=== PATIENT | female | born 1980 ===

== ENCOUNTER 2017-08-26 15:53 | Emergency (ER) | payer BC ==
[2017-08-26 17:34] VITALS: BP 130/94
--- NOTE | 2017-08-26 17:45 | UC ---
UC General HPI - HPI Summary HPI Summary: infection to L ear piercing since friday-worsening. no fever. - History of Current Complaint Chief Complaint: UCSkin Stated Complaint: EAR PIERCING INFECTION Time Seen by Provider: 08/26/17 17:24 Hx Obtained From: Patient Hx Last Menstrual Period: 08/02/17 Onset/Duration: Gradual Onset, Lasting Days - 3-4 Timing: Constant Pain Intensity: 5 Aggravating: nothing Alleviating: nothing Associated Signs & Symptoms: Positive: Other - area red, sore and swollen - Allergy/Home Medications Allergies/Adverse Reactions: Allergies Allergy/AdvReac Type Severity Reaction Status Date / Time amoxicillin Allergy Rash Verified 08/26/17 17:39 cephalexin [From Keflex] Allergy Rash Verified 08/26/17 17:39 fish oil Allergy Nausea And Verified 08/26/17 17:39 Vomiting PMH/Surg Hx/FS Hx/Imm Hx Previously Healthy: Yes - Surgical History Surgical History: Yes Surgery Procedure, Year, and Place: NASAL POLYP SURGERY. Kidney stone lithotripsy left side Dr burgess [facility] 09/2014. right shoulder surgery - Family History Known Family History: Positive: None - Social History Occupation: Employed Full-time Lives: With Family Alcohol Use: Rare Substance Use Type: None Smoking Status (MU): Never Smoked Tobacco - Immunization History Most Recent Influenza Vaccination: Fall 2013 Vaccination Up to Date: Yes Review of Systems Constitutional: Negative Skin: Other - red, swollen l ear Eyes: Negative ENT: Negative Respiratory: Negative Cardiovascular: Negative Gastrointestinal: Negative Genitourinary: Negative Motor: Negative Neurovascular: Negative Musculoskeletal: Negative Neurological: Negative Psychological: Negative Is Patient Immunocompromised?: No All Other Systems Reviewed And Are Negative: Yes Physical Exam Triage Information Reviewed: Yes Appearance: Well-Appearing Vital Signs: Initial Vital Signs Temp 98.7 F 08/26/17 17:28 Pulse 78 08/26/17 17:28 Resp 16 08/26/17 17:28 BP 130/94 08/26/17 17:28 Pulse Ox 100 08/26/17 17:28 Vital Signs Reviewed: Yes Eyes: Positive: Conjunctiva Clear ENT: Positive: Pharynx normal, TMs normal, Other - L auricle with erythema, mild swelling, warm, tender and weeping from auricle piercing. no auricular adenopathy.. Negative: Nasal congestion, Nasal drainage Neck: Positive: Supple, Nontender, No Lymphadenopathy Respiratory: Positive: Lungs clear, Normal breath sounds Cardiovascular: Positive: RRR, No Murmur Abdomen Description: Positive: Nontender, No Organomegaly, Soft Bowel Sounds: Positive: Present Musculoskeletal: Positive: ROM Intact Neurological: Positive: Alert Psychological: Positive: Age Appropriate Behavior Skin Exam: Normal Procedures - Procedure Summary Procedure Summary: permission obtained to remove piercing from cartilage. piercing removed without difficulty, culture obtained. site cleaned soak/water then openings covered with Bacitracin. pt tolerated well. Course/Dx - Course Course Of Treatment: pt established with Dr Rodriguez thus will f/u with him tomorrow for a recheck. piercing returned to the pt. - Differential Dx - Multi-Symptom Provider Diagnoses: Infection L auricle Discharge - Sign-Out/Discharge Documenting (check all that apply): Discharge/Admit/Transfer - Discharge Plan Condition: Stable Disposition: HOME Prescriptions: DOXYcycline CAP(*) [DOXYcycline 100MG CAP(*)] 100 mg PO BID #20 cap Patient Education Materials: Cellulitis (DC) Referrals: Noemi Giraldo MD [Primary Care Provider] - If Needed Jonah Rodriguez MD [Medical Doctor] - 1 Day - Billing Disposition and Condition Condition: STABLE Disposition: HOME
== END 2017-08-26 17:59 | disposition home or self-care (01) ==
LOC: UCCORT 15:53
DX: L08.9 Local infection of the skin and subcutaneous tissue, unspecified (principal); Z88.1 Allergy status to other antibiotic agents; Z88.0 Allergy status to penicillin; Z91.048 Other nonmedicinal substance allergy status
CPT/HCPCS: 87070; 87077; 87186; 87205; 87640; 87641; 99212; G0463

== ENCOUNTER 2018-05-27 11:39 | Emergency (ER) | payer BC ==
[2018-05-27 11:57] VITALS: BP 135/88
[2018-05-27 12:08] LABS: Influenza A Molecular POSITIVE (Negative)
--- NOTE | 2018-05-27 12:27 | UC ---
UC General HPI - HPI Summary HPI Summary: HOLLIS WITH FEVER/CHILLS AND BODY ACHES X 1 DAY. TMAX 101 - History of Current Complaint Chief Complaint: UCGeneralIllness Stated Complaint: FLU SX'S Time Seen by Provider: 05/27/18 12:21 Hx Obtained From: Patient Hx Last Menstrual Period: 05/25/18 Onset/Duration: Gradual Onset Timing: Constant Pain Intensity: 4 Associated Signs & Symptoms: Negative: Cough, Diarrhea, SOB, Vomiting - Allergy/Home Medications Allergies/Adverse Reactions: Allergies Allergy/AdvReac Type Severity Reaction Status Date / Time amoxicillin Allergy Rash Verified 05/27/18 11:49 ceftriaxone [From Rocephin] Allergy Rash Verified 05/27/18 11:49 cephalexin [From Keflex] Allergy Rash Verified 05/27/18 11:49 ciprofloxacin [From Cipro] Allergy Altered Verified 05/27/18 11:49 Mental Status doxycycline Allergy Rash Verified 05/27/18 11:49 fish oil Allergy Nausea And Verified 05/27/18 11:49 Vomiting Home Medications: Home Medications Aspirin/Acetaminophen/Caffeine [Excedrin Migraine Caplet] 1 each PO ONCE [History Confirmed 05/27/18] Fluticasone NASAL SPRAY 50MCG* [Flonase NASAL SPRAY 50MCG*] 2 spray BOTH NARES DAILY 05/27/18 [History Confirmed 05/27/18] Hydrochlorothiazide TAB* [Hydrodiuril TAB*] 25 mg PO BID 05/27/18 [History Confirmed 05/27/18] Potassium Citrate [Potassium Citrate ER] 5 meq PO DAILY 05/27/18 [History Confirmed 05/27/18] Ubidecarenone [Coq-10] 1 dose PO DAILY 05/27/18 [History Confirmed 05/27/18] PMH/Surg Hx/FS Hx/Imm Hx Cardiovascular History: Hypertension - Surgical History Surgical History: Yes Surgery Procedure, Year, and Place: NASAL POLYP SURGERY. Kidney stone lithotripsy left side Dr burgess [facility] 09/2014. right shoulder surgery - Family History Known Family History: Positive: None - Social History Occupation: Employed Full-time Alcohol Use: Occasionally Substance Use Type: None Smoking Status (MU): Never Smoked Tobacco - Immunization History Most Recent Influenza Vaccination: Fall 2013 Vaccination Up to Date: Yes Review of Systems All Other Systems Reviewed And Are Negative: Yes Constitutional: Positive: Fever, Chills, Fatigue Skin: Positive: Negative Eyes: Positive: Negative ENT: Positive: Negative Respiratory: Positive: Negative Cardiovascular: Positive: Negative Gastrointestinal: Positive: Negative Genitourinary: Positive: Negative Motor: Positive: Negative Neurovascular: Positive: Negative Musculoskeletal: Positive: Myalgia Neurological: Positive: Headache Psychological: Positive: Negative Physical Exam Triage Information Reviewed: Yes Appearance: Ill-Appearing - BUT NON TOXIC Vital Signs: Initial Vital Signs Temp 99.4 F 05/27/18 11:51 Pulse 91 05/27/18 11:51 Resp 16 05/27/18 11:51 BP 135/88 05/27/18 11:51 Pulse Ox 100 05/27/18 11:51 Vital Signs Reviewed: Yes Eyes: Positive: Conjunctiva Clear ENT: Positive: Pharynx normal, TMs normal. Negative: Nasal congestion, Nasal drainage Neck: Positive: Supple, Nontender, No Lymphadenopathy Respiratory: Positive: Lungs clear, Normal breath sounds Cardiovascular: Positive: RRR, No Murmur Abdomen Description: Positive: Nontender, No Organomegaly, Soft Bowel Sounds: Positive: Present Musculoskeletal: Positive: ROM Intact Neurological: Positive: Alert Psychological: Positive: Age Appropriate Behavior Skin Exam: Normal Diagnostics - Laboratory Diagnostic Studies Completed/Ordered: + INFLUENZA A Course/Dx - Diagnoses Provider Diagnosis: Influenza A Discharge - Sign-Out/Discharge Documenting (check all that apply): Patient Departure All imaging exams completed and their final reports reviewed: No Studies - Discharge Plan Condition: Stable Disposition: HOME Patient Education Materials: Influenza (ED) Forms: *Work Release Referrals: Noemi Giraldo MD [Primary Care Provider] - 7 Days - Billing Disposition and Condition Condition: STABLE Disposition: Home - Attestation Statements Provider Attestation: I was available for consult. This patient was seen by the DAYANARA. The patient was not presented to, seen by, or examined by me. -Alvaro
== END 2018-05-27 12:32 | disposition home or self-care (01) ==
LOC: UCCORT 11:39
DX: J10.1 Influenza due to other identified influenza virus with other respiratory manifestations (principal); I10 Essential (primary) hypertension; Z88.0 Allergy status to penicillin; Z88.1 Allergy status to other antibiotic agents; Z91.09 Other allergy status, other than to drugs and biological substances; Z79.82 Long term (current) use of aspirin
CPT/HCPCS: 99211; G0463

== ENCOUNTER 2019-07-07 15:52 | Emergency (ER) | payer BC ==
[2019-07-07 17:57] VITALS: BP 130/94
--- NOTE | 2019-07-07 18:45 | UC ---
Throat Pain/Nasal Abdoul HPI - HPI Summary HPI Summary: Pt presetns with c/o ST X 3-4 days. Pt's 3 children have had strep and one child has tested positive for strep 2 times in the last month. - History of Current Complaint Chief Complaint: UCGeneralIllness Stated Complaint: SORE THROAT/HEADACHE/NAUSEA Time Seen by Provider: 07/07/19 18:14 Hx Obtained From: Patient Hx Last Menstrual Period: 06/16/19 ?: No Onset/Duration: Sudden Onset, Lasting Days, Still Present Severity: Mild Pain Intensity: 3 Cough: None Associated Signs & Symptoms: Positive: Dysphagia - Epiglottits Risk Factors Epiglottis Risk Factors: Sudden Onset - Allergies/Home Medications Allergies/Adverse Reactions: Allergies Allergy/AdvReac Type Severity Reaction Status Date / Time amoxicillin Allergy Rash Verified 07/07/19 17:57 ceftriaxone [From Rocephin] Allergy Rash Verified 07/07/19 17:57 cephalexin [From Keflex] Allergy Rash Verified 07/07/19 17:57 ciprofloxacin [From Cipro] Allergy Altered Verified 07/07/19 17:57 Mental Status doxycycline Allergy Rash Verified 07/07/19 17:57 fish oil Allergy Nausea And Verified 07/07/19 17:57 Vomiting Home Medications: Home Medications Acetaminophen TAB* [Tylenol TAB*] 650 mg PO Q4H PRN 09/27/14 [History Confirmed 07/07/19] Aspirin/Acetaminophen/Caffeine [Excedrin Migraine Caplet] 1 each PO ONCE [History Confirmed 07/07/19] Fluticasone NASAL SPRAY 50MCG* [Flonase NASAL SPRAY 50MCG*] 2 spray BOTH NARES DAILY 05/27/18 [History Confirmed 07/07/19] Hydrochlorothiazide TAB* [Hydrodiuril TAB*] 25 mg PO BID 05/27/18 [History Confirmed 07/07/19] Potassium Citrate [Potassium Citrate ER] 5 meq PO DAILY 05/27/18 [History Confirmed 07/07/19] Minocycline (NF) 100 mg PO BID 07/07/19 [History Confirmed 07/07/19] PMH/Surg Hx/FS Hx/Imm Hx Previously Healthy: Yes - Surgical History Surgical History: Yes Surgery Procedure, Year, and Place: NASAL POLYP SURGERY. Kidney stone lithotripsy left side Dr burgess [facility] 09/2014. right shoulder surgery. broken L ankle - Family History Known Family History: Positive: Cardiac Disease - Social History Occupation: Employed Full-time Lives: With Family Alcohol Use: Occasionally Substance Use Type: None Smoking Status (MU): Never Smoked Tobacco Have You Smoked in the Last Year: No - Immunization History Most Recent Influenza Vaccination: Fall 2013 Vaccination Up to Date: Yes Review of Systems All Other Systems Reviewed And Are Negative: Yes Constitutional: Positive: Negative Skin: Positive: Negative Eyes: Positive: Negative ENT: Positive: Sore Throat Respiratory: Positive: Negative Cardiovascular: Positive: Negative Gastrointestinal: Positive: Negative Genitourinary: Positive: Negative Motor: Positive: Negative Neurovascular: Positive: Negative Musculoskeletal: Positive: Negative Neurological/Mental Status: Positive: Negative Psychological: Positive: Negative Is Patient Immunocompromised?: No Physical Exam Triage Information Reviewed: Yes Appearance: Well-Appearing Vital Signs: Initial Vital Signs Temp 99.4 F 07/07/19 17:52 Pulse 77 07/07/19 17:52 Resp 16 07/07/19 17:52 BP 130/94 07/07/19 17:52 Pulse Ox 100 07/07/19 17:52 Vital Signs Reviewed: Yes Eye Exam: Normal ENT: Positive: Pharyngeal erythema Dental Exam: Normal Neck exam: Normal Respiratory Exam: Normal Respiratory: Positive: No respiratory distress Musculoskeletal Exam: Normal Neurological Exam: Normal Psychological Exam: Normal Skin Exam: Normal Throat Pain/Nasal Course/Dx - Differential Dx/Diagnosis Differential Diagnosis/HQI/PQRI: Laryngitis, Pharyngitis, Tonsillitis Provider Diagnosis: Sore throat (viral) Discharge ED - Sign-Out/Discharge Documenting (check all that apply): Patient Departure All imaging exams completed and their final reports reviewed: No Studies - Discharge Plan Condition: Stable Disposition: HOME Patient Education Materials: Pharyngitis (ED) Referrals: Noemi Giraldo MD [Primary Care Provider] - If Needed - Billing Disposition and Condition Condition: STABLE Disposition: Home
== END 2019-07-07 18:52 | disposition home or self-care (01) ==
LOC: UCCORT 15:52
DX: J02.9 Acute pharyngitis, unspecified (principal); Z88.0 Allergy status to penicillin; Z88.1 Allergy status to other antibiotic agents; Z91.09 Other allergy status, other than to drugs and biological substances
CPT/HCPCS: 87651; 99211; G0463